=== PATIENT | female | born 1960 | race Caucasian/White ===

== ENCOUNTER 2021-05-12 13:14 | Outpatient (REF) | payer BC, SELFPAY ==
[2021-05-13 15:29] LABS: COVID-19 RT-PCR UVMMC Result Negative (Negative)
== END 2021-05-12 13:15 | disposition home or self-care (01) ==
LOC: NCHCN 13:14
PROVIDERS: Visit Provider Family Medicine
DX: Z20.822 Contact with and (suspected) exposure to COVID-19 (principal)
CPT/HCPCS: U0003

== ENCOUNTER 2021-07-19 08:24 | Outpatient (RCR) | payer BC, SELFPAY ==
--- NOTE | 2021-07-19 09:45 | HOLTER_ITS ---
APPROVED REPORT Conclusion This was a 48-hour Holter monitor Predominant rhythm was sinus with an average heart rate of 78. Minimum was 46, maximum 131 There were very rare atrial and ventricular ectopic beats There was no atrial fibrillation, no high-grade AV block, no pauses greater than 3 seconds Patient symptoms did not correlate with any dysrhythmia
== END 2021-08-02 23:59 | disposition home or self-care (01) ==
LOC: RT 08:24
PROVIDERS: Visit Provider Family Medicine
DX: R55 Syncope and collapse (principal)
CPT/HCPCS: 93225; 93226

== ENCOUNTER 2021-12-02 18:12 | Outpatient (REF) | payer BC, SELFPAY ==
[2021-12-02 21:04] LABS: Abs Immature Grans 0.01 10^3/uL (0.0-0.06); Absolute Basophil Count 0.04 10^3/uL (0.0-0.2); Absolute Eosinophil Count 0.28 10^3/uL (0.0-0.7); Absolute Lymphocyte Count 2.23 10^3/uL (1.2-3.4); Absolute Monocyte Count 0.39 10^3/uL (0.1-0.8); Absolute Neutrophil Count 3.08 10^3/uL (1.2-6.7); Basophils % 0.7; Eosinophils % 4.6; HCT 44.4 % (36.0-46.0); HGB 14.7 g/dL (11.2-15.7); Immature Grans % 0.2; MCH 29.5 pg (27.0-33.0); MCHC 33.1 % (32.0-36.0); MPV 10.9 fL (8.0-11.0); Monocytes % 6.5; Nucleated RBC 0 %; Platelet Count 230 10^3/uL (130-400); RBC 4.99 10^6/uL (3.93-5.22); RDW 12.3 % (11.7-14.6); RDW-SD 39.8 fL; WBC 6.03 10^3/uL (4.4-10.8)
[2021-12-02 21:20] LABS: ALT 33 U/L (14-59); AST 23 U/L (15-37); Albumin 3.8 g/dL (3.4-5.0); Alkaline Phosphatase 76 U/L (46-116); Anion Gap 5.7 mmol/L (3-11); BUN 14 mg/dL (7-18); Bilirubin, Total 0.6 mg/dL (0.2-1.0); CO2 30.3 mmol/L (21.0-32.0); CREATININE 0.9 mg/dL (0.55-1.02); Calcium 8.9 mg/dL (8.5-10.1); Chloride 106 mmol/L (98-107); Glucose 99 mg/dL (74-106); Potassium 4.2 mmol/L (3.5-5.1); Sodium 142 mmol/L (136-145); TSH (W/Ref FT4) 1.44 uIU/mL (0.36-3.74); Total Protein 6.9 g/dL (6.4-8.2)
== END 2021-12-02 18:13 | disposition home or self-care (01) ==
LOC: NCHCN 18:12
PROVIDERS: PCP Family Medicine; Visit Provider Family Medicine
DX: E04.2 Nontoxic multinodular goiter (principal); R00.0 Tachycardia, unspecified; F41.1 Generalized anxiety disorder; M54.2 Cervicalgia
CPT/HCPCS: 80053; 84443; 85025

== ENCOUNTER 2022-01-11 18:18 | Outpatient (REF) | payer BC, SELFPAY ==
[2022-01-11 22:32] LABS: Calculated LDL 70 mg/dL (<100); Cholesterol 190 mg/dL (<200); HDL Cholesterol 106 mg/dL (40-60); Triglyceride 74 mg/dL (<150)
== END 2022-01-11 18:19 | disposition home or self-care (01) ==
LOC: NCHCN 18:18
PROVIDERS: PCP Family Medicine; Visit Provider Family Medicine
DX: Z00.00 Encounter for general adult medical examination without abnormal findings (principal); Z13.220 Encounter for screening for lipoid disorders
CPT/HCPCS: 80061

== ENCOUNTER 2022-11-10 01:01 | Outpatient (CLI) | payer BC, SELFPAY ==
--- NOTE | 2022-11-10 14:30 | DI.MRI_ITS ---
Exam(s) MR CERVICAL SPINE WO EXAM: MR CERVICAL SPINE WO CLINICAL HISTORY: NECK PAIN, M54.2 TECHNIQUE: Multiplanar multisequence MRI of the cervical spine was performed without intravenous con trast. COMPARISON: No exams were available for comparison FINDINGS: BONES: Vertebral body heights are maintained. Intervertebral disc spaces are normal. There is 3 mm an terolisthesis of C4 on C5. Bone marrow signal intensity is within normal limits. CERVICAL CORD: Craniovertebral junction is unremarkable. The cervical cord is normal size and signal intensity. SOFT TISSUES: Unremarkable. C2-3: No disc herniation or bulge is identified. No significant central spinal canal or neural forami nal stenosis. C3-4: No disc herniation or bulge is identified. No significant central spinal canal or neural forami nal stenosis C4-5: There are hypertrophic changes seen at the right facet and uncovertebral joint. There is no si gnificant central spinal canal stenosis. [id number] right neural foraminal stenosis is present . No significant left neural foraminal stenosis is present. C5-6: No disc herniation or bulge is identified. No significant central spinal canal or neural forami nal stenosis. There are mild degenerative changes seen of the left facet joint. C6-7: There is prominence of the osteophyte disc complex. No significant central spinal canal or armando ral foraminal stenosis C7-T1: No disc herniation or bulge is identified. No significant central spinal canal or neural gabi inal stenosis IMPRESSION: Multilevel degenerative changes in the cervical spine as described above please see the above discuss ion for complete details. DATA REPOSITORY:
== END 2022-11-10 01:21 ==
LOC: DI 01:01
PROVIDERS: PCP Family Medicine; Visit Provider Family Medicine
DX: M47.812 Spondylosis without myelopathy or radiculopathy, cervical region (principal)
CPT/HCPCS: 72141

== ENCOUNTER 2022-12-07 16:30 | Outpatient (REF) | payer BC, SELFPAY ==
[2022-12-07 21:29] LABS: Anion Gap 8.2 mmol/L (3-11); BUN 10 mg/dL (7-18); C-Reactive Protein 0.35 mg/dL (0.0-0.3); CO2 28.8 mmol/L (21.0-32.0); CREATININE 0.8 mg/dL (0.55-1.02); Calcium 9.4 mg/dL (8.5-10.1); Chloride 103 mmol/L (98-107); Glucose 84 mg/dL (74-106); Potassium 3.5 mmol/L (3.5-5.1); Sodium 140 mmol/L (136-145)
[2022-12-07 21:33] LABS: Hemoglobin A1C 5.5 % (<5.7)
[2022-12-07 22:10] LABS: Vitamin B12 682 pg/mL (193-986)
== END 2022-12-07 16:31 | disposition home or self-care (01) ==
LOC: NCHCN 16:30
PROVIDERS: PCP Family Medicine; Visit Provider Family Medicine
DX: R20.2 Paresthesia of skin (principal); R00.0 Tachycardia, unspecified; F41.1 Generalized anxiety disorder; Z13.1 Encounter for screening for diabetes mellitus; R79.82 Elevated C-reactive protein (CRP)
CPT/HCPCS: 80048; 82607; 83036; 86140

== ENCOUNTER 2022-12-08 00:30 | Outpatient (CLI) | payer BC, SELFPAY ==
--- NOTE | 2022-12-08 | DI.MAMMO_ITS ---
Exam(s) MG MAMMO DIAGNOSTIC UNI US BREAST LT LIMITED EXAM: MG MAMMO DIAGNOSTIC UNI and U/S breast LT limited CLINICAL HISTORY: LEFT BREAST PAIN N64.4 FIBROSCLEROSIS BREAST N60.39. TECHNIQUE: Craniocaudal and mediolateral oblique Full Field Digital Mammography views of the left br east with Computer Aided Diagnosis followed by Tomosynthesis and left breast ultrasound. COMPARISON: Comparison is made with prior examinations. FINDINGS: Mammography/Tomosynthesis: Masses/Architectural Distortion: None seen. Microcalcifictions: No suspicious pleomorphic-type are seen. Skin Thickening/Nipple Retraction: None. Limited left breast US: Echotexture: Normal appearance of the glandular tissue. Shadowing: No suspicious foci. Cyst: None. Solid lesions: There is a well-circumscribed radially oriented isoechoic nodule at the 12 o'clock pos ition of the left breast measuring 0.7 x 0.4 x 0.8 cm. No posterior acoustic enhancement/shadowing o r echogenic foci are seen. Ductal dilation: None. IMPRESSION: 1. No definite evidence of malignancy is noted. Well-circumscribed isoechoic nodule in the left breas t. It has benign characteristics sonographically and may represent a fibroadenoma. 2. Unless there is more urgent need, follow-up screening mammography is recommended, as per [place] [employer] guidelines. 3. The findings were discussed with the patient on the date of the examination. If there is clinical concern, a six-month follow-up left limited breast ultrasound may be obtained. BI-RADS Category 2 - Benign Findings Breast Density - Category C - Heterogeneously dense Breast density Category C or D implies that the patient has dense breast tissue. Dense breast tissue can make it harder to find cancer on a mammogram. Dense breast tissue is also associated with an incr eased risk of breast cancer. This information about the result of the mammogram report was provided to the patient to raise their awareness. Use this report when you speak with the patient about their risks for breast cancer, which includes their family history. At that time, you may recommend additional screening tests (Ultrasoun d or MRI) as these tests may add significant information. A negative radiographic report should not delay biopsy if a dominant or clinically suspicious mass is present. Up to ten percent of cancers are not identified on mammography. A negative report may reinforce clinical impression. Adenosis and dense breasts may obscure an underlying neoplasm. False positive reports average 6 to 10%. Patient will receive a letter notifying them of these results.
--- NOTE | 2022-12-08 14:47 | DI.RAD_ITS ---
Exam(s) XR HAND RT COMPLETE EXAM: XR HAND RT COMPLETE CLINICAL HISTORY: HAND PAIN M79.643. TECHNIQUE: 2D digital imaging was performed of the right hand. Three images were obtained. AP, late ral and oblique views were obtained. COMPARISON: No exams were available for comparison FINDINGS: BONES: No acute fracture is present. No bony destructive lesion is seen. JOINTS: No dislocation present. Joint space narrowing and bony hypertrophy is seen in the right hand particularly the interphalangeal joints of the fingers. The findings are most marked in the 2nd and 3rd fingers. There also are erosions seen at the DIP joints of the 2nd, 3rd and 4th fingers. The me tacarpophalangeal joints are well maintained. Mild hypertrophic changes are seen in the wrist, parti cularly at the articulation between the scaphoid and the trapezium and the 1st MCP joint. SOFT TISSUE: There is mild soft tissue swelling of the 2nd, 3rd and 4th fingers. IMPRESSION: Findings suggestive of erosive osteoarthritis. DATA REPOSITORY: RADIATION DOSE DELIVERED:
== END 2022-12-08 00:50 ==
LOC: DI 00:31
PROVIDERS: PCP Family Medicine; Visit Provider Family Medicine
DX: M79.643 Pain in unspecified hand (principal); N60.39 Fibrosclerosis of unspecified breast; N64.4 Mastodynia; M15.4 Erosive (osteo)arthritis
CPT/HCPCS: 76642; 77061; 77065; 73130; G0279

== ENCOUNTER 2024-08-12 15:22 | Outpatient (REF) | payer BC, SELFPAY ==
[2024-08-12 21:57] LABS: Anion Gap 6.8 mmol/L (3-11); BUN 20 mg/dL (7-18); CO2 30.2 mmol/L (21.0-32.0); CREATININE 1.1 mg/dL (0.55-1.02); Calcium 8.9 mg/dL (8.5-10.1); Chloride 106 mmol/L (98-107); Estimated GFR 56.81 (mL/min/1.73m2); Glucose 99 mg/dL (74-106); Potassium 3.9 mmol/L (3.5-5.1); Sodium 143 mmol/L (136-145)
== END 2024-08-12 15:23 | disposition home or self-care (01) ==
LOC: NCHCN 15:22
PROVIDERS: PCP Family Medicine; Visit Provider Family Medicine
DX: E87.1 Hypo-osmolality and hyponatremia (principal)
CPT/HCPCS: 80048

== ENCOUNTER 2024-12-30 15:54 | Outpatient (REF) | payer BC, SELFPAY ==
--- NOTE | 2024-12-30 08:45 | PAPFT_PTH ---
PATIENT: Jocelyne Chester LOC: [facility]#:[id number] AGE/SX: 64/F ROOM: RE12/30/[address]: Delia Waters : 1960 BED: DIS: 12/30/2024 SPEC #: [id number] RECD: 12/30/24 18:22 STATUS: TOM REQ #: [id number] CAT[place]: 12/30/24 08:[address]: Delia Waters DEPT: [facility] Cytology RECD BY: Jessica Joseph Tissues: 1 - CX/ENDOCX FOR PAP SMEARS Procedures: PAP THIN PREP/[facility] Screening HPV DNA PROBE Comments: [id number] (HPV 16 & 18/45)
[2024-12-30 16:42] LABS: Anion Gap 6.7 mmol/L (3-11); BUN 9 mg/dL (7-18); CO2 30.3 mmol/L (21.0-32.0); CREATININE 0.8 mg/dL (0.55-1.02); Calculated LDL 64 mg/dL (<100); Chloride 108 mmol/L (98-107); Cholesterol 181 mg/dL (<200); Estimated GFR 83.26 (mL/min/1.73m2); Glucose 88 mg/dL (74-106); HDL Cholesterol 104 mg/dL (>or=50); Potassium 3.9 mmol/L (3.5-5.1); Sodium 145 mmol/L (136-145); Triglyceride 66 mg/dL (<150)
[2024-12-30 23:08] LABS: HIV-1/2 Ag & Ab Screen Negative (Negative)
[2024-12-30 23:16] LABS: Hepatitis C Ab w Rflx HCV PCR Negative (Negative)
== END 2024-12-30 15:55 | disposition home or self-care (01) ==
LOC: NCHCN 15:54
PROVIDERS: PCP Family Medicine; Visit Provider Family Medicine
DX: Z12.4 Encounter for screening for malignant neoplasm of cervix (principal); Z01.419 Encounter for gynecological examination (general) (routine) without abnormal findings; Z13.220 Encounter for screening for lipoid disorders; E87.1 Hypo-osmolality and hyponatremia; Z11.59 Encounter for screening for other viral diseases; Z11.4 Encounter for screening for human immunodeficiency virus [HIV]; Z00.00 Encounter for general adult medical examination without abnormal findings
CPT/HCPCS: 80048; 80061; 86803; 87389; 88142; 87624

== ENCOUNTER 2025-01-23 19:18 | Outpatient (REF) | payer BC, SELFPAY ==
[2025-01-23 14:40] LABS: ESR 3 mm/hr (0-30)
[2025-01-23 14:44] LABS: Abs Immature Grans 0.02 10^3/uL (0.0-0.06); Absolute Basophil Count 0.03 10^3/uL (0.0-0.2); Absolute Eosinophil Count 0.27 10^3/uL (0.0-0.7); Absolute Lymphocyte Count 2.27 10^3/uL (1.2-3.4); Absolute Monocyte Count 0.42 10^3/uL (0.1-0.8); Absolute Neutrophil Count 4.98 10^3/uL (1.2-6.7); Basophils % 0.4 %; Eosinophils % 3.4 %; HGB 14.1 g/dL (11.2-15.7); Immature Grans % 0.3 %; Lymphocytes % 28.4 %; MCH 29.1 pg (27.0-33.0); MCHC 32.8 % (32.0-36.0); MCV 89 fL (80-95); MPV 10.6 fL (8.0-11.0); Monocytes % 5.3 %; Neutrophils % 62.2 %; Platelet Count 266 10^3/uL (130-400); RBC 4.85 10^6/uL (3.93-5.22); RDW 12.5 % (11.7-14.6); RDW-SD 40.7 fL; WBC 7.99 10^3/uL (4.4-10.8)
[2025-01-23 14:59] LABS: Iron 121 ug/dL (50-170); Total Iron Binding Capacity 301 ug/dL (250-450); Transferrin Sat 40 % (15-50)
[2025-01-23 15:40] LABS: Ferritin 84 ng/mL (8-252); Folate 18.8 ng/mL (8.6-20.0); Vitamin B12 549 pg/mL (193-986)
[2025-01-23 16:35] LABS: C-Reactive Protein < 0.50 mg/dL (<or=0.5)
== END 2025-01-23 19:19 | disposition home or self-care (01) ==
LOC: NCHCN 19:18
PROVIDERS: PCP Family Medicine; Visit Provider Nurse Practitioner Family
DX: K12.0 Recurrent oral aphthae (principal)
CPT/HCPCS: 85652; 82607; 82728; 82746; 83540; 83550; 85025; 86140

== ENCOUNTER 2025-01-27 16:21 | Outpatient (REF) | payer BC, SELFPAY ==
[2025-01-29 13:55] LABS: IgA 65 mg/dL (85-499); Interpretation (See Note); Tissue Transglutaminase IgA <4.0 CU (<20.0)
[2025-01-30 10:51] LABS: HSV Type 1 Ab, IgG Positive (Negative); HSV Type 2 Ab, IgG Negative (Negative)
== END 2025-01-27 16:22 | disposition home or self-care (01) ==
LOC: NCHCN 16:21
PROVIDERS: PCP Family Medicine; Visit Provider Family Medicine
DX: K12.0 Recurrent oral aphthae (principal)
CPT/HCPCS: 82784; 83516; 86695; 86696

== ENCOUNTER 2025-03-27 17:13 | Outpatient (REF) | payer BC, SELFPAY ==
--- NOTE | 2025-03-27 12:00 | SKI_PTH ---
PATIENT: Jocelyne Chester LOC: [facility] U#:[id number] AGE/SX: 64/F ROOM: RE03/27/[address]: Delia Waters : 1960 BED: DIS: 03/27/2025 SPEC #: [id number] RECD: 03/27/25 17:26 STATUS: TOM REDavid #: [id number] [place]: 03/27/25 12:[address]: Delia Waters DEPT: Surgical Specimen RECD BY: Jessica Joseph Tissues: 1 - SKIN BIOPSY(SHAVE/PUNCH) Procedures: SKIN LEVEL 4 Comments: [id number]
== END 2025-03-27 17:14 | disposition home or self-care (01) ==
LOC: NCHCN 17:13
PROVIDERS: PCP Family Medicine; Visit Provider Family Medicine
DX: L82.0 Inflamed seborrheic keratosis (principal)
CPT/HCPCS: 88305